=== PATIENT | male | born 1985 | race Caucasian/White ===

== ENCOUNTER 2023-03-24 03:56 | Outpatient (RCR) | payer OTHER, SELFPAY ==
--- NOTE | 2023-03-24 10:15 | DI.RAD_ITS ---
Exam(s) XR PORTABLE CHEST AP POST LINE EXAM: XR PORTABLE CHEST AP POST LINE CLINICAL HISTORY: Verify picc placement post line placement . Room 5 TECHNIQUE: 2D digital imaging was performed. COMPARISON: No exams were available for comparison FINDINGS: A PICC line is been inserted via the right arm. The tip lies in the lower superior vena cava. LUNGS: Clear. No pleural abnormality seen. HEART: Normal size. AORTA: Normal diameter. BONES: Unremarkable for age. Soft tissues: Unremarkable. IMPRESSION: Satisfactory PICC placement. DATA REPOSITORY: RADIATION DOSE DELIVERED:
[2023-03-24] MEDS: cefTRIAXone 2 GM/50 ML BAG IVPB (10:25)
[2023-03-24] MEDS: Normal Saline Flush 10 ML SYR IVP (10:26)
[2023-03-24 10:36] LABS: Abs Immature Grans 0.01 10^3/uL (0.0-0.06); Absolute Basophil Count 0.02 10^3/uL (0.0-0.2); Absolute Eosinophil Count 0.37 10^3/uL (0.0-0.7); Absolute Neutrophil Count 3.31 10^3/uL (1.2-6.7); Basophils % 0.3; Eosinophils % 5.8; HCT 45.9 % (40.0-50.0); HGB 15.4 g/dL (13.5-17.5); Immature Grans % 0.2; Lymphocytes % 32.8; MCHC 33.6 % (32.0-36.0); MCV 89 fL (80-95); Monocytes % 9.4; Neutrophils % 51.5; RBC 5.14 10^6/uL (4.36-5.78); RDW 13.6 % (11.8-14.1); RDW-SD 45.1 fL; WBC 6.41 10^3/uL (4.4-10.8)
[2023-03-24 10:48] LABS: ALT 41 U/L (16-63); AST 14 U/L (15-37); Albumin 3.5 g/dL (3.4-5.0); Alkaline Phosphatase 49 U/L (46-116); Anion Gap 6.3 mmol/L (3-11); BUN 16 mg/dL (7-18); Bilirubin, Total 0.3 mg/dL (0.2-1.0); C-Reactive Protein 0.16 mg/dL (0.0-0.3); CO2 27.7 mmol/L (21.0-32.0); CREATININE 0.9 mg/dL (0.70-1.30); Calcium 9.3 mg/dL (8.5-10.1); Chloride 105 mmol/L (98-107); Estimated GFR 113.51 (mL/min/1.73m2); Glucose 99 mg/dL (74-106); Potassium 4.6 mmol/L (3.5-5.1); Sodium 139 mmol/L (136-145); Total Protein 7.1 g/dL (6.4-8.2)
[2023-03-24 11:29] LABS: Diff Comment Diff Reviewed; RBC Morphology Normal
== END 2023-04-13 23:59 | disposition home or self-care (01) ==
LOC: INF 03:56
PROVIDERS: PCP Registered Nurse Diabetes Educator; Visit Provider Internal Medicine Infectious Disease
DX: S40.25 Superficial foreign body of shoulder (principal); L08.9 Local infection of the skin and subcutaneous tissue, unspecified; A49.8 Other bacterial infections of unspecified site
CPT/HCPCS: 36573; 36592; 71045; 80053; 96365; 85025; 86140